=== PATIENT | female | born 1990 | race Caucasian/White ===

== ENCOUNTER 2017-10-03 11:13 | Outpatient (CLI) | payer OTHER ==
[2017-10-03] MEDS ORDERED: RINGERS SOLUTION,LACTATED 1,000 ML IV ONE (11:51)
[2017-10-03 12:08] LABS: APPEARANCE,URINE CLEAR; BILIRUBIN,URINE NEGATIVE (NEGATIVE); GLUCOSE, URINE NEGATIVE (NEGATIVE); KETONES,URINE NEGATIVE (NEGATIVE); LEUKOCYTE ESTERASE,URINE NEGATIVE (NEGATIVE); NITRITE,URINE NEGATIVE (NEGATIVE); PROTEIN,URINE NEGATIVE (NEGATIVE); URINE SPECIFIC GRAVITY 1.002; UROBILINOGEN,URINE NEGATIVE mg/dL (<2.0)
[2017-10-03 12:35] LABS: URINE BARBITURATES SCREEN NEGATIVE; URINE METHADONE SCREEN NEGATIVE; URINE OPIATES LOW NEGATIVE; URINE PHENCYCLIDINE SCREEN NEGATIVE
--- NOTE | 2017-10-03 12:44 | Non Stress Test Report ---
Non Stress Test Datetime Report Generated by CPN: 10/03/2017 12:44 DEMOGRAPHIC EGA NST: 33.6 INDICATION Indication for Study: Ordered by Provider Indication for Study: Ordered by Provider Indication for Study (NST) Other: lc Indication for Study (NST) Other: lc VITAL SIGNS Temperature - NST: 98.1 Pulse - NST: 95 RESP - NST: 16 NBPSYS NST: 111 NBPDIA NST: 68 MONITORING Monitor Explained: Monitor Explained; Test Explained; Patient Verbalized Understanding Monitor Explained: Monitor Explained; Test Explained; Patient Verbalized Understanding Time on Monitor: 10/03/2017 11:30 Time on Monitor: 09/26/2017 11:30 Time off Monitor: 10/03/2017 12:30 NST Duration: 60 NST INTERVENTIONS NST Interventions: PO Hydration; Reposition Patient NST Interventions: PO Hydration; IV Fluids; Reposition Patient Physician Notified NST: Dr Kilgore Physician Notified NST: Dr Kilgore BABY A: [id number] BABY A Movement : Present Movement : Present Contraction Frequency : 0 Contraction Frequency : 0 FHR Baseline : 150 FHR Baseline : 150 Accelerations : 15X15 Accelerations : 15X15 Decelerations : None Decelerations : None Variability : Moderate 6-25bpm Variability : Moderate 6-25bpm NST Review: Meets Criteria for Reactive NST NST Review: Meets Criteria for Reactive NST NST Review and Verified By : JENNIE Khan NST Results: Reactive NST Results: Reactive NST REPORT Report Trigger: Send Report
== END 2017-10-03 12:39 | disposition home or self-care (01) ==
LOC: LC 11:13
PROVIDERS: ATTEND Student in an Organized Health Care Education/Training Program
DX: O47.03 False labor before 37 completed weeks of gestation, third trimester (principal); Z3A.33 33 weeks gestation of pregnancy
CPT/HCPCS: 59025; 80307; 81001

== ENCOUNTER 2017-11-09 06:00 | Inpatient (IN) | payer OTHER ==
[2017-11-09] MEDS ORDERED: RINGERS SOLUTION,LACTATED 1,000 ML IV ONE (06:33)
[2017-11-09 06:38] LABS: APPEARANCE,URINE SLIGHTLY-CLOUDY; BILIRUBIN,URINE NEGATIVE (NEGATIVE); COLOR,URINE YELLOW; GLUCOSE, URINE NEGATIVE (NEGATIVE); KETONES,URINE NEGATIVE (NEGATIVE); LEUKOCYTE ESTERASE,URINE SMALL (NEGATIVE); NITRITE,URINE NEGATIVE (NEGATIVE); PROTEIN,URINE NEGATIVE (NEGATIVE); URINE SPECIFIC GRAVITY 1.012; UROBILINOGEN,URINE NEGATIVE mg/dL (<2.0)
[2017-11-09 06:54] LABS: URINE AMPHETAMINES SCREEN NEGATIVE; URINE BARBITURATES SCREEN NEGATIVE; URINE BENZODIAZEPINES SCREEN NEGATIVE; URINE COCAINE SCREEN NEGATIVE; URINE MARIJUANA (THC) SCREEN NEGATIVE; URINE METHADONE SCREEN NEGATIVE; URINE PHENCYCLIDINE SCREEN NEGATIVE
[2017-11-09 07:50] LABS: HEMATOCRIT 38.8 % (36.0-47.0); HEMOGLOBIN 13.2 g/dL (12.0-15.5); MEAN CORPUSCULAR HGB CONC 33.9 g/dL (32.0-36.0); MEAN CORPUSCULAR VOLUME 95 fl (80-97); PLATELET COUNT 175 10^3/uL (150-450); RED BLOOD COUNT 4.11 10^6/uL (3.72-5.28); WHITE BLOOD COUNT 13.6 10^3/uL (4.0-10.5)
[2017-11-09] MEDS ORDERED: LIDOCAINE 1% INJ-PF (10 MG/ML) 30 ML SDV ONE (08:59)
[2017-11-09] MEDS ORDERED: OXYTOCIN/NORMAL SALINE 20 UNIT/1,000 ML RTUINJ ONE (08:59)
[2017-11-09] MEDS ORDERED: MISOPROSTOL 0.2 MG TABLET ONE (08:59)
--- NOTE | 2017-11-09 09:02 | L&D Progress Notes ---
PROGRESS NOTES Datetime Report Generated by CPN: 11/09/2017 09:02 PROGRESS NOTE Impression: Normal Progression of Labor; Reassuring Heart Rate Procedures: Artificial ROM; Sterile Vag Exam Plan: Continue Present Management; Anticipate Vaginal Delivery Informed Consent Obtained: Vaginal Delivery Comment: pt back to bed after ambulating, VE 7/95/vtx/0, AROM, thick mec, Cat 1 strip, pt wanting epidural, irreg uc's, monitor closely VAGINAL EXAM Dilatation: 7 Dilatation: 4 Effacement: 95 Effacement: 90 Station: 0 Station: -1 MEMBRANES Membranes: Ruptured Membranes: Intact Amniotic Fluid Color: Meconium, Heavy FETUS A FHR - Baseline: 130 Monitoring: External US Variability: Moderate 6-25bpm Accelerations: 15X15 Decelerations: None Presentation: Vertex SIGNATURE SIGNATURE: [id number] SIGNATURE: [id number] Assignment: Bryce Huggins MD Signature: with User ID: [email or web address] : with User ID: [email or web address]
[2017-11-09] MEDS ORDERED: FENTANYL/BUPIVACAINE/NS/PF 200 MCG/100 ML RTUINJ EPI ONE (09:08)
[2017-11-09] MEDS ORDERED: BUPIVACAINE HCL 0.25 % INJ/PF (2.5 MG/1 ML) 30 ML VIAL ONE (09:08)
[2017-11-09] MEDS ORDERED: EPHEDRINE SULFATE INJ 50 MG/1 ML AMPULE ONE (09:08)
[2017-11-09] MEDS ORDERED: DIBUCAINE 1% OINTMENT 28 GM TP PRN (10:16)
[2017-11-09] MEDS ORDERED: PROMETHAZINE HCL INJ 25 MG/1 ML VIAL IV PRN (10:16)
[2017-11-09] MEDS ORDERED: GLYCERIN/WITCH HAZEL LEAF 1 EACH MED..PAD TP PRN (10:16)
[2017-11-09] MEDS ORDERED: DIPH/PERTUSS(ACELL)/TETANUS VAC/PF 0.5 ML SYR (>=10YO) IM PRN (10:16)
[2017-11-09] MEDS ORDERED: ACETAMINOPHEN WITH CODEINE #3 TABLET PO PRN ×2 (10:16)
[2017-11-09] MEDS ORDERED: PROMETHAZINE HCL 25 MG SUPP.RECT PR PRN (10:16)
[2017-11-09] MEDS ORDERED: BENZOCAINE/MENTHOL AEROSOL SPRAY 56 ML TOP PRN (10:16)
[2017-11-09] MEDS ORDERED: NA PHOS,M-B/NA PHOS,DI-BA (ADULT) 133 ML ENEMA PR PRN (10:16)
[2017-11-09] MEDS ORDERED: PSEUDOEPHEDRINE HCL 30 MG TABLET PO PRN (10:16)
[2017-11-09] MEDS ORDERED: MEASLES,MUMPS&RUBELLA VACC/PF 0.5 ML VIAL SUBCUT PRN (10:16)
[2017-11-09] MEDS ORDERED: PROMETHAZINE HCL 25 MG TABLET PO PRN (10:16)
[2017-11-09] MEDS ORDERED: ACETAMINOPHEN 650 MG SUPP.RECT PR PRN (10:16)
[2017-11-09] MEDS ORDERED: DIPHENHYDRAMINE HCL 25 MG CAPSULE PO PRN (10:16)
[2017-11-09] MEDS ORDERED: MAGNESIUM HYDROXIDE SUSP 30 ML UDCUP PO PRN (10:16)
[2017-11-09] MEDS ORDERED: MISOPROSTOL 0.2 MG TABLET PR PRN (10:16)
[2017-11-09] MEDS: OXYTOCIN/NORMAL SALINE 20 UNIT/1,000 ML RTUINJ IV PRN ×2 (10:42→11:50)
[2017-11-09] MEDS: RINGERS SOLUTION,LACTATED 1,000 ML IV PRN ×2 (10:42→11:50)
--- NOTE | 2017-11-09 10:52 | Warning Signs in Babies ---
VOD Warning Signs Datetime Report Generated by CPN: 11/09/2017 10:51 VOD#608 -Warning Signs in Babies: Viewed with Parent(s)/Family (11/09/2017 10:50:Mandy Guan RN)
--- NOTE | 2017-11-09 11:42 | Delivery Summary ---
Del Sum A-C Datetime Report Generated by CPN: 11/09/2017 11:41 DELIVERY PERSONNEL DELIVERY PERSONNEL: [id number] Delivery Doctor:: Kimberly Michael CNM Nurse Finger Grip Machine Operator Certified:: Kimberly Michael CNM Labor and Delivery Nurse:: KRISTIN Ramos Labor and Delivery Nurse:: Danica Sandoval RN Nursery Nurse:: JENNIE Oliveira Tech/RESIDENTIAL NURSE: Zena Tripp, ST MATERNAL INFORMATION Delivery Anesthesia: Epidural Medications After Delivery: Pitocin Drip 20 Units/1000ml NSS; Cytotec 600mcg Per Rectum/Vagina Meds After Delivery Comment: Pitocin 20 units in 1000 ml nss open for bolus Estimated Blood Loss (ml): 200 Maternal Complications: None Provider Comments: pt progressed quickly after epidural, 3 pushes and delivered a baby girl from OA to KADE[place] over 1st degree perineal lac, spont delivery of grossly nl intact placenta, 3 vc, ebl = 200 cc, FFFM, cytotec 600 mcg via rectum, lac repaired, Pitocin infusing, baby was placed on mothers abd, large amount of thick mec at delivery mom and baby in recovery in stable condition LABOR SUMMARY EDC: 11/15/2017 00:00 No. Babies in Womb: 1 Attempted: No Labor Anesthesia: Epidural LABOR INFORMATION Reason for Induction: Not Applicable Onset of Labor: 11/09/2017 02:00 Complete Dilatation: 11/09/2017 09:43 Oxytocin: N/A Group B Beta Strep: negative Steroids Given: None Reason Steroids Not Administered: Not Applicable MEMBRANES Membranes Rupture Method: Artificial Rupture of Membranes: 11/09/2017 08:55 Length of Rupture (hr): 0.97 Amniotic Fluid Color: Heavy Meconium Amniotic Fluid Amount: Moderate Amniotic Fluid Odor: Normal STAGES OF LABOR Stage 1 hr: 7 Stage 1 min: 43 Stage 2 hr: 0 Stage 2 min: 10 Stage 3 hr: 0 Stage 3 min: 6 Total Time in Labor hr: 7 Total Time in Labor min: 59 VAGINAL DELIVERY Episiotomy: None Laceration #1: Perineal; Vaginal Laceration Extension #1: First Degree Laceration Repair: Yes Laceration Repair Note: 2 sutures with 2-0 chromic Sponge Count Correct: N/A Sharps Count Correct: Yes CSECTION DELIVERY Primary Indication: N/A Secondary Indication: N/A CSection Incidence: N/A Labor: N/A Elective: N/A CSection Incision: N/A BABY A INFORMATION Delivery Date/Time: 11/09/2017 09:53 Method of Delivery: Vaginal Born in Route : No : N/A Forceps: N/A Vacuum Extraction: N/A Shoulder Dystocia : No PRESENTATION/POSITION BABY A Presentation: Cephalic Cephalic Presentation: Vertex Vertex Position: Left Occipital Anterior Breech Presentation: N/A PLACENTA INFORMATION BABY A Placenta Delivery Time : 11/09/2017 09:59 Placenta Method of Delivery: Spontaneous Placenta Status: Delivered SCORES BABY A Heart Rate 1 min: >100 bpm Resp Effort 1 min: Slow, Irregular Reflex Irritability 1 min: Cough or Sneeze or Pulls Away Muscle Tone 1 min: Active Motion Color 1 min: Body [place], Extremities Blue Resuscitation Effort 1 min: Tactile Stimulation SCORE 1 MIN: 8 Heart Rate 5 min: >100 bpm Resp Effort 5 min: Good Cry Reflex Irritability 5 min: Cough or Sneeze or Pulls Away Muscle Tone 5 min: Active Motion Color 5 min: Body [place], Extremities Blue Resuscitation Effort 5 min: Tactile Stimulation SCORE 5 MIN: 9 INFORMATION BABY A Gestational Age at Delivery: 39.1 Gestational Status: Full Term- 39- 40.6 Weeks Outcome : Liveborn Infant Condition : Stable Sex: Female IDENTIFICATION BABY A Verification Date/Time: 11/09/2017 10:13 ID Band Number: [id number] Mother's Name Verified: Yes Infant RN Verifying : AJack Sandoval RN/ D. Faviolaaraseligaurave RN WEIGHT/LENGTH BABY A Birthweight (gm): 3390 Weight (lb): 7 Infant Weight (oz): 8 Infant Length (in): 19.75 Infant Length (cm): 50.17 CORD INFORMATION BABY A No. Cord Vessels: 3 Nuchal Cord : N/A Cord Blood Taken: Yes-For Storage (Mom's Blood type +) Suction: Mouth; Nose ASSESSMENT BABY A Complications: Meconium Physical Findings at Delivery: Within Normal Limits Infant Respirations: Appears Normal Skin to Skin: Yes Skin to Skin Time (min): 60 Tint Layer/ALS Called : No Care By: Dawit Holden RN Transferred To: Remains with Mother BABY B INFORMATION : N/A
[2017-11-09] MEDS ORDERED: IBUPROFEN 800 MG TABLET ONE (12:13)
--- NOTE | 2017-11-09 12:50 | Admission Physical ---
Datetime Report Generated by CPN: 11/09/2017 12:50 CURRENT ADMISSION Chief Complaint: Uterine Contractions Indication for Induction: Not Applicable Indication for Induction: Term, Intrauterine Admit Plan: Admit to Unit; Initiate Labor Protocol ALLERGIES Medication Allergies: Yes Medication Allergies: Penicillins/AK/Hives (11/09/2013) Latex: No Latex Allergies Food Allergies: None Environmental Allergies: None OBSTETRICAL HISTORY EDC: 11/15/2017 00:00 : 3 Para: 1 Term: 1 : 0 SAB: 1 IAB: 0 Ectopic: 0 Livin Cesareans: 0 VBACs: 0 Multiple Births: 0 Gestational Diabetes: No Rh Sensitization: No Incompetent Cervix: No CARLOS: No Infertility: No ART Treatment: No Uterine Anomaly: No IUGR: No Hx Previous C/S: No Macrosomia: No Hx Loss/Stillborn: No PIH: No Hx : No Placenta Previa/Abruption: No Depression/PP Depression: No PTL/PROM: No Post Hemorrhage: No Current Procedures: Ultrasound Obstetrical History Comments: G1 - 2012, , Baby boy at 39 weeks gestation G2 - 2015, 8 weeks SAB G3 - Current SEE RECORDS Alcohol: No Marijuana : No Cocaine: No Other Illicit Drugs: No Cigarettes: Never Smoker. [id number] MEDICAL HISTORY Diabetes: No Blood Transfusion: No Pulmonary Disease (Asthma, TB): No Breast Disease: No Hypertension: No Water Attendant Surgery: No Heart Disease: No Hosp/Surgery: Yes Autoimmune Disorder: No Anesthetic Complications: No Kidney Disease: No Abnormal Pap Smear: Yes Neuro/Epilepsy: No Psychiatric Disorders: No Other Medical Diseases: No Hepatitis/Liver Disease: No Significant Family History: No Varicosities/Phlebitis: No Trauma/Violence : No Thyroid Dysfunction: No Medical History Comments: Knee surgery x2, 1999 meningitis, abn pap 2016 ASCUS INFECTIOUS HISTORY Gonorrhea: No Genital Herpes: No Chlamydia: No Tuberculosis: No Syphilis: No Hepatitis: No HIV/AIDS Exposure: No Rash or Viral Illness: No HPV: No PHYSICAL EXAM General: Normal HEENT: Normal Neurologic: Normal Thyroid: Deferred Heart: Normal Lungs: Normal Breast: Deferred Back: Normal Abdomen: Normal Genitourinary Exam: Normal Extremities: Normal DTRs: Normal Pelvic Type: Adequate Vital Signs: Reviewed VAGINAL EXAM Dilatation: 7 Dilatation: 4 Effacement: 95 Effacement: 90 Station: 0 Station: -1 MEMBRANES Membranes: Ruptured Membranes: Intact Amniotic Fluid Color: Meconium, Heavy FETUS A EGA: 39.1 Monitoring: External US FHR- Baseline: 170 Accelerations: 15X15 Decelerations: Variable FHR Category: Category I Presentation: Vertex Admit Comment: 27yo presents for regular uterine contractions. Cervix is 3-4/90/-1 with regular painful contractions. Admit to L_D. GBS negative. uncomplicated. pelvis proven to 7#5oz. Will augment labor if needed. Pelvis adequate for DONALD. Reassuring FWB. Epidural when pt desires. PLANS FOR LABOR AND DELIVERY Labor and Delivery: None Pain Management: Epidural Feeding Preference: Formula Benefit of Breast Feed Discussed: Yes Circumcision: N/A INFORMED CONSENT Informed Consent Obtained: Vaginal Delivery Signature: with User ID: [email or web address]
[2017-11-09] MEDS: FERROUS SULFATE 325 MG TABLET PO SCH (17:15)
[2017-11-09] MEDS: DOCUSATE SODIUM 100 MG CAPSULE PO SCH (17:15)
[2017-11-09] MEDS: IBUPROFEN 800 MG TABLET PO SCH ×2 (17:27→21:02)
[2017-11-09] MEDS: FAMOTIDINE 20 MG TABLET PO SCH (21:03)
[2017-11-10] MEDS: IBUPROFEN 800 MG TABLET PO SCH ×3 (05:49→21:34)
[2017-11-10 06:53] LABS: HEMATOCRIT 32.6 % (36.0-47.0); HEMOGLOBIN 11.2 g/dL (12.0-15.5); MEAN CORPUSCULAR HEMOGLOBIN 32.2 pg (27.0-33.4); MEAN CORPUSCULAR HGB CONC 34.3 g/dL (32.0-36.0); MEAN CORPUSCULAR VOLUME 94 fl (80-97); PLATELET COUNT 127 10^3/uL (150-450); RED BLOOD COUNT 3.47 10^6/uL (3.72-5.28); RED CELL DISTRIBUTION WIDTH 11.8 % (11.5-14.0); WHITE BLOOD COUNT 12.8 10^3/uL (4.0-10.5)
--- NOTE | 2017-11-10 09:53 | PDOC PROGRESS REPORT ---
Subjective Progress Note for:: 11/10/17 Subjective:: She and the baby are doing well this morning. Reason For Visit: Physical Exam - Physical Exam Vital Signs: Temp Pulse Resp BP Pulse Ox 97.9 F 50 L 16 115/80 98 11/10/17 07:37 11/10/17 07:37 11/10/17 07:37 11/10/17 07:37 11/10/17 07:37 Intake & Output 11/09/17 11/10/17 11/11/17 06:59 06:59 06:59 Intake Total 300 Balance 300 Weight 78.18 kg General appearance: PRESENT: no acute distress, well-developed, well-nourished Extremities exam: PRESENT: full ROM. ABSENT: calf tenderness, clubbing, pedal edema Result Laboratory Results: 11/10/17 06:32 11/10/17 06:32 WBC 12.8 H RBC 3.47 L Hgb 11.2 L Hct 32.6 L MCV 94 MCH 32.2 MCHC 34.3 RDW 11.8 Plt Count 127 L Assessment & Plan - Diagnosis (1) Vaginal delivery Is this a current diagnosis for this admission?: Yes - Time Time Spent with patient: Less than 15 minutes Within: within 24 hours Disposition: Home tomorrow
[2017-11-10] MEDS: FERROUS SULFATE 325 MG TABLET PO SCH ×2 (10:30→18:36)
[2017-11-10] MEDS: PRENATAL VITAMIN W DHA CAPSULE PO SCH (10:31)
[2017-11-10] MEDS: DOCUSATE SODIUM 100 MG CAPSULE PO SCH ×2 (10:31→18:36)
[2017-11-10] MEDS: FAMOTIDINE 20 MG TABLET PO SCH ×2 (10:31→21:34)
[2017-11-10] MEDS: SENNOSIDES/DOCUSATE 8.6-50 MG 1 EACH TABLET PO SCH (10:31)
[2017-11-11] MEDS: IBUPROFEN 800 MG TABLET PO SCH ×2 (06:20→14:58)
[2017-11-11 07:57] VITALS: BP 131/74
[2017-11-11] MEDS: FAMOTIDINE 20 MG TABLET PO SCH (09:28)
[2017-11-11] MEDS: SENNOSIDES/DOCUSATE 8.6-50 MG 1 EACH TABLET PO SCH (09:28)
[2017-11-11] MEDS: FERROUS SULFATE 325 MG TABLET PO SCH (09:28)
[2017-11-11] MEDS: PRENATAL VITAMIN W DHA CAPSULE PO SCH (09:29)
[2017-11-11] MEDS: DOCUSATE SODIUM 100 MG CAPSULE PO SCH (09:29)
--- NOTE | 2017-11-11 13:32 | PDOC DISCHARGE SUMMARY ---
Final Diagnosis Discharge Date: 11/11/17 - Final Diagnosis (1) Vaginal delivery Is this a current diagnosis for this admission?: Yes Discharge Data - Discharge Medication Prescriptions: Ibuprofen [Motrin 800 mg Tablet] 800 mg PO Q8HP PRN #60 tablet PRN Reason: Home Medications: Vits96/Iron Fum/Folic [ Tablet] 1 tab PO DAILY 10/23/13 Ibuprofen [Motrin 800 mg Tablet] 800 mg PO Q8HP PRN #60 tablet 11/11/17 Reason(s) for Admission: Onset of Labor Procedures: Ultrasound Intrapartum Procedure(s): Spontaneous Vaginal Delivery Complication(s): Laceration-Vaginal Laceration-Degree: 1st - [place] Data Baby 1 Female at 1 minute: 8 at 5 minutes: 9 - Diagnosis Test Laboratory: Temp Pulse Resp BP Pulse Ox 98.3 F 67 16 131/74 H 97 11/11/17 07:55 11/11/17 07:55 11/11/17 07:55 11/11/17 07:55 11/11/17 07:55 11/09/17 11/09/17 11/10/17 06:11 07:23 06:32 RBC 4.11 3.47 L Hgb 13.2 11.2 L Hct 38.8 32.6 L Urine Opiates Screen NEGATIVE - Discharge information/Instructions Discharge Activity: Activity As Tolerated, Balance Activity w/Rest, No Lifting Over 10 Pounds, Pelvic Rest, No tub bath Discharge Diet: Regular Disposition: HOME, SELF-CARE Follow up with: [facility] in: 4, Weeks
== END 2017-11-11 14:40 | disposition home or self-care (01) | DRG 775 ==
LOC: LC 06:00 → LR 06:39 → 2N 12:48
PROVIDERS: ADMIT Obstetrics & Gynecology Gynecology; ATTEND Obstetrics & Gynecology Gynecology
PROC: 10E0XZZ Delivery of Products of Conception, External Approach (ICD-10-PCS; principal; 2017-11-09)
PROC: 0HQ9XZZ Repair Perineum Skin, External Approach (ICD-10-PCS; 2017-11-09)
DX: O77.0 Labor and delivery complicated by meconium in amniotic fluid (principal); O70.0 First degree perineal laceration during delivery; Z3A.39 39 weeks gestation of pregnancy; Z37.0 Single live birth
CPT/HCPCS: 36415; 80307; 81005; 85027; 86592; 86850; 86900; 86901; 94760; J2590; J3490